=== PATIENT | female | born 1995 | race Caucasian/White ===

== ENCOUNTER 2018-03-05 18:09 | Inpatient (IN) | payer OTHER ==
[2018-03-05] MEDS ORDERED: METHYLERGONOVINE 0.2 MG INJ IM (19:00)
[2018-03-05] MEDS ORDERED: OXYTOCIN 30 UNITS/LR 500 ML IV (19:00)
[2018-03-05] MEDS ORDERED: LIDOCAINE 1% (MPF) 30 ML INJ INJ (19:00)
[2018-03-05] MEDS ORDERED: CARBOPROST 250 MCG INJ IM (19:00)
[2018-03-05] MEDS ORDERED: MISOPROSTOL 200 MCG TAB PR (19:00)
[2018-03-05 19:50] LABS: ADD MAN DIFF? NO
[2018-03-05 19:54] LABS: WHITE BLOOD COUNT 16.5 10^3/ul (4.8-10.8)
[2018-03-05 19:54] LABS: BASOPHILS % 0.2 % (0.0-2.0); EOSINOPHILS # 0.1 10^3/ul (0.0-0.5); EOSINOPHILS % 0.5 % (0.0-7.0); HEMOGLOBIN 12.6 g/dl (12.0-16.0); LYMPHOCYTES # 1.5 10^3/ul (0.8-2.9); LYMPHOCYTES % 9.1 % (15.0-51.0); MEAN CORPUSCULAR HEMOGLOBIN 31.4 pg (29.0-33.0); MEAN CORPUSCULAR VOLUME 89.8 fl (82.0-101.0); MONOCYTE # 0.9 10^3/ul (0.3-0.9); MONOCYTES % 5.3 % (0.0-11.0); NEUTROPHIL # 13.9 10^3/ul (1.6-7.5); NEUTROPHILS % 84.3 % (39.0-77.0); PLATELET COUNT 212 10^3/UL (140-415); RED BLOOD COUNT 4.01 10^6/ul (4.20-5.40)
[2018-03-05 20:14] LABS: INR 0.84; PARTIAL THROMBOPLASTIN TIME 28.1 Sec (25.0-35.0); PROTIME 11.6 Sec (11.9-14.9); PT RATIO 0.9
[2018-03-05] MEDS: LACTATED RINGER'S 1,000 ML IV* ×2 (20:14→21:35)
[2018-03-05] MEDS: AMPICILLIN 2 GM/NS (PMX) 100 ML IVPB (20:14)
[2018-03-05] MEDS ORDERED: FENTAnyl 2MCG/ML-ROPIV 0.2% 100 ML (20:18)
[2018-03-05] MEDS ORDERED: EPHEDrine SULFATE 50 MG/5 ML SYG IV (20:30)
[2018-03-05] MEDS ORDERED: FENTAnyl 2MCG/ML-ROPIV 0.2% 100 ML BAG EPI (20:30)
[2018-03-05] MEDS ORDERED: DIPHENHYDRAMINE 50 MG INJ IV (20:30)
[2018-03-05] MEDS ORDERED: NALOXONE (0.4 MG/ML) INJ IV (20:30)
[2018-03-05] MEDS ORDERED: ONDANSETRON 4 MG INJ IV (20:30)
[2018-03-06] MEDS: AMPICILLIN 1 GM/NS (PMX) 50 ML IVPB ×3 (00:18→05:00)
[2018-03-06] MEDS: OXYTOCIN 30 UNITS/LR 500 ML IV ×3 (06:52→11:09)
[2018-03-06] MEDS ORDERED: ONDANSETRON 4 MG INJ IV (11:00)
[2018-03-06] MEDS ORDERED: HYDROCODONE/APAP (5/325) TAB PO ×2 (11:00)
[2018-03-06] MEDS ORDERED: OXYCODONE/ASPIRIN (4.88/325) TAB PO ×2 (11:00)
[2018-03-06] MEDS ORDERED: ACETAMINOPHEN 325 MG TAB PO (11:00)
[2018-03-06] MEDS: LANOLIN 7 GM TUBE TOP (11:02)
[2018-03-06] MEDS: WITCH HAZEL/GLYCERIN PAD PR (11:03)
[2018-03-06] MEDS: DIBUCAINE 1% 30 GM OINT PR (11:06)
[2018-03-06] MEDS: BENZOCAINE 20% 56 ML SPRAY TOP (11:06)
[2018-03-06] MEDS: IBUPROFEN 600 MG TAB PO ×2 (11:43→17:35)
[2018-03-06 15:27] LABS: RAPID PLASMA REAGIN NONREACTIVE (NR)
[2018-03-06] MEDS: SENNA/DOCUSATE NA (8.6MG/50MG) TAB PO (20:40)
[2018-03-07] MEDS: IBUPROFEN 600 MG TAB PO ×5 (00:22→23:59)
[2018-03-07] MEDS: SENNA/DOCUSATE NA (8.6MG/50MG) TAB PO ×2 (09:03→21:23)
[2018-03-07 09:12] LABS: ADD MAN DIFF? NO
[2018-03-07 09:24] LABS: BASOPHILS % 0.2 % (0.0-2.0); EOSINOPHILS # 0.2 10^3/ul (0.0-0.5); EOSINOPHILS % 0.9 % (0.0-7.0); HEMATOCRIT 31.7 % (37.0-47.0); HEMOGLOBIN 10.7 g/dl (12.0-16.0); LYMPHOCYTES # 1.7 10^3/ul (0.8-2.9); LYMPHOCYTES % 8.6 % (15.0-51.0); MEAN CORPUSCULAR HEMOGLOBIN 30.9 pg (29.0-33.0); MEAN CORPUSCULAR HGB CONC 33.8 g/dl (32.0-37.0); MEAN CORPUSCULAR VOLUME 91.6 fl (82.0-101.0); MEAN PLATELET VOLUME 9.8 fl (7.4-10.4); MONOCYTE # 0.6 10^3/ul (0.3-0.9); MONOCYTES % 2.9 % (0.0-11.0); NEUTROPHIL # 16.6 10^3/ul (1.6-7.5); NEUTROPHILS % 86.2 % (39.0-77.0); PLATELET COUNT 179 10^3/UL (140-415); RED BLOOD COUNT 3.46 10^6/ul (4.20-5.40); RED CELL DISTRIBUTION WIDTH 13.7 % (11.5-14.5)
[2018-03-07 09:24] LABS: WHITE BLOOD COUNT 19.3 10^3/ul (4.8-10.8)
[2018-03-08] MEDS: IBUPROFEN 600 MG TAB PO ×2 (06:02→11:59)
[2018-03-08] MEDS: MEASLES,MUMPS,RUBELLA VACCINE INJ SC* (09:00)
[2018-03-08] MEDS: SENNA/DOCUSATE NA (8.6MG/50MG) TAB PO (09:06)
[2018-03-08 09:14] LABS: ADD MAN DIFF? NO
[2018-03-08 09:18] LABS: WHITE BLOOD COUNT 14.3 10^3/ul (4.8-10.8)
[2018-03-08 09:18] LABS: BASOPHILS % 0.2 % (0.0-2.0); EOSINOPHILS # 0.2 10^3/ul (0.0-0.5); EOSINOPHILS % 1.3 % (0.0-7.0); HEMATOCRIT 33.1 % (37.0-47.0); HEMOGLOBIN 11.2 g/dl (12.0-16.0); LYMPHOCYTES # 1.7 10^3/ul (0.8-2.9); MEAN CORPUSCULAR HEMOGLOBIN 30.9 pg (29.0-33.0); MEAN CORPUSCULAR HGB CONC 33.8 g/dl (32.0-37.0); MEAN CORPUSCULAR VOLUME 91.2 fl (82.0-101.0); MEAN PLATELET VOLUME 9.3 fl (7.4-10.4); MONOCYTE # 0.5 10^3/ul (0.3-0.9); MONOCYTES % 3.2 % (0.0-11.0); NEUTROPHIL # 11.7 10^3/ul (1.6-7.5); NEUTROPHILS % 82.1 % (39.0-77.0); PLATELET COUNT 202 10^3/UL (140-415); RED BLOOD COUNT 3.63 10^6/ul (4.20-5.40); RED CELL DISTRIBUTION WIDTH 13.5 % (11.5-14.5)
== END 2018-03-08 13:55 | disposition home or self-care (01) | DRG 775 ==
LOC: OBT 18:09 → PP1 03-06 09:31 → L-D 18:11 → PP1 03-06 15:24 → OBT 18:45 → L-D 18:45
PROVIDERS: Obstetrics & Gynecology
PROC: 10E0XZZ Delivery of Products of Conception, External Approach (ICD-10-PCS; principal; 2018-03-06)
PROC: 0HQ9XZZ Repair Perineum Skin, External Approach (ICD-10-PCS; 2018-03-06)
DX: O70.0 First degree perineal laceration during delivery (principal); O69.81X0 Labor and delivery complicated by cord around neck, without compression, not applicable or unspecified; Z3A.39 39 weeks gestation of pregnancy; Z37.0 Single live birth
CPT/HCPCS: 62319; 85025; 85610; 85730; 86592; 86850; 86900; 86901